=== PATIENT | male | born 1950 | race Caucasian/White ===

== ENCOUNTER 2016-12-13 03:50 | Emergency (ER) | payer MEDICARE, OTHER ==
[~2016-12-13 03:50] MED LIST: ADVIL PO; ASAB PO; ATEN50 PO; ATV.5 PO; CORTIZONE-101 % TOP; FLEX PO; GLUCPH PO; L20 PO; LEXAPRO10 PO; LIPITOR20 PO; LIPITOR40 PO; PERCOCET1 TA2 PO; PERCOCET1 TA4 PO; PRIN20 PO; PROAIR HFA INH; REQUIP1 PO; TRIAMCINOLON0.5 % TOP; VITD PO; ZESTORETIC1 TAB PO; ZOL100 PO; ZOL50 PO; [UNRECOGNIZED DRUG - REMARK] PO
== END 2016-12-13 04:06 | disposition home or self-care (01) ==
LOC: ER 03:50
DX: L30.9 Dermatitis, unspecified (principal); E11.9 Type 2 diabetes mellitus without complications
CPT/HCPCS: 99282